=== PATIENT | female | born 1965 | race African-American/Black ===

== ENCOUNTER 2019-01-29 14:04 | Emergency (ER) | payer BC ==
[~2019-01-29] VITALS: Ht 172.7 cm; Wt 88.5 kg
[2019-01-29 16:17] LABS: URINE BILIRUBIN NEGATIVE (Negative); URINE BLOOD NEGATIVE (Negative); URINE CLARITY CLEAR; URINE GLUCOSE-RANDOM* 3+ (Negative); URINE KETONES NEGATIVE (Negative); URINE LEUKOCYTES-REFLEX NEGATIVE (Negative); URINE NITRITE-REFLEX NEGATIVE (Negative); URINE PROTEIN (DIPSTICK) NEGATIVE (Negative); URINE UROBILINOGEN 0.2 E.U./dl (0.2-1.0)
[2019-01-29 16:21] LABS: URINE COLOR YELLOW
[2019-01-29] MEDS ORDERED: TRULICITY0.75 MG/0. SUBQ (17:07)
[2019-01-29] MEDS ORDERED: TEST STRIPS1 EACH MISCELL (17:30)
[2019-01-29 18:00] VITALS: BP 131/74
== END 2019-01-29 18:01 | disposition home or self-care (01) ==
LOC: ER 14:04
PROVIDERS: Emergency Medicine
DX: E11.9 Type 2 diabetes mellitus without complications (principal)